=== PATIENT | female | born 1955 | race Caucasian/White ===

== ENCOUNTER 2017-10-27 15:03 | Outpatient (CLI) | payer OTHER ==
--- NOTE | 2017-10-27 15:56 | RAD ---
CHEST TWO VIEWS: 10/27/16 HISTORY: Preop. FINDINGS: The cardiac silhouette and pulmonary vasculature are unremarkable. Mediastinum is midline. There is n o confluent air space consolidation, pneumothorax, or pleural fluid. IMPRESSION: No active cardiopulmonary abnormalities are demonstrated. POS: [facility]
[2017-10-27 16:02] LABS: #Basophils 0.1 thou/uL (0.0-0.2); #Eosinphils 0.6 thou/uL (0.0-0.7); #Lymphocytes 1.8 thou/uL (1.20-3.40); #Monocytes 0.6 thou/uL (0.11-0.59); #Neutrophils 1.8 thou/uL (1.40-6.50); %Basophils 2.2 % (0.0-1.0); %Eosinophils 11.8 % (0.0-10.0); %Lymphocytes 36.9 % (21.0-51.0); %Monocytes 12.3 % (0.0-10.0); Hemoglobin 12.1 g/dL (12.0-16.0); Mean Corpuscular HGB CONC 33.8 g/dL (32.0-36.0); Mean Corpuscular Hemoglobin 33.5 pg (27.0-31.0); Mean Platelet Volume 8.3 fL (7.4-10.4); Platelet Count 208 thou/uL (130-400); RBC Distribution Width 14.1 % (11.5-14.5); Red Blood Cell (RBC) Count 3.61 mill/uL (4.20-5.40); White Blood Cell (WBC) Count 4.9 thou/uL (4.8-10.8)
[2017-10-27 16:20] LABS: Anion Gap 12 mmol/L (10-20); BUN (Urea Nitrogen) 11 mg/dL (9.8-20.1); Calc. Creatinine Clearance 0 mL/min (70-130); Calcium 8.7 mg/dL (7.8-10.44); Carbon Dioxide 26 mmol/L (22-29); Chloride 109 mmol/L (98-107); Estimated GFR-MDRD Greater than 90; Glucose 93 mg/dL (70-105); Potassium 3.9 mmol/L (3.5-5.1); Sodium 143 mmol/L (136-145)
--- NOTE | 2017-12-31 13:59 | EKG ---
Test Reason : Blood Pressure : / mmHG Vent. Rate : 085 BPM Atrial Rate : 085 BPM P-R Int : 144 ms QRS Dur : 072 ms QT Int : 350 ms P-R-T Axes : 024 056 055 degrees QTc Int : 416 ms Normal sinus rhythm Normal ECG No previous ECGs available Confirmed by SHARA DE PAZ MD ([id number]) on 12/31/2017 1:59:25 PM Referred By: KIM Confirmed By:SHARA DE PAZ MD
== END 2017-10-27 15:04 | disposition home or self-care (01) ==
LOC: LABBT 15:03
PROVIDERS: ATTEND Specialist
DX: Z01.818 Encounter for other preprocedural examination (principal); K43.9 Ventral hernia without obstruction or gangrene
CPT/HCPCS: 71046; 80048; 85025; 93005; 93010

== ENCOUNTER 2017-11-01 07:28 | Day surgery (SDC) | payer OTHER ==
[2017-10-27 15:12] VITALS: BMI 25.8
[2017-11-01] MEDS ORDERED: CEFAZOLIN/Water 2 GM/20 ML SYRINGE ONE (08:04)
[2017-11-01] MEDS ORDERED: Ketorolac Tromethamine 30 MG/ML VIAL ONE (08:05)
[2017-11-01] MEDS ORDERED: Midazolam HCl 2 mg/2 ml Vial ONE (08:40)
[2017-11-01] MEDS ORDERED: Lidocaine 2% w/Epinephrine 1:200K 20 ML VIAL ONE (09:22)
[2017-11-01] MEDS ORDERED: Bupivacaine 0.25% HCL 30 ML VIAL ONE (09:22)
[2017-11-01] MEDS ORDERED: Fentanyl 100 MCG/2 ML VIAL ONE ×3 (09:33→11:06)
[2017-11-01] MEDS ORDERED: HYDROmorphone 0.5 MG/0.5 ML SYRINGE ONE (09:33)
[2017-11-01] MEDS ORDERED: HYDROcodone/Acetaminophen 5/325 mg Tablet ONE (12:37)
[2017-11-01] MEDS ORDERED: PHENYLEPHRINE-NS 100 MCG/ML 10 ML SYRINGE ONE (16:34)
[2017-11-01] MEDS ORDERED: Lidocaine 1% PF 5 ML VIAL ONE (16:34)
[2017-11-01] MEDS ORDERED: Glycopyrrolate 0.2 MG/ML 5 ML SYRINGE ONE (16:34)
[2017-11-01] MEDS ORDERED: PROPOFOL 200 MG/20 ML VIAL ONE (16:34)
[2017-11-01] MEDS ORDERED: Ondansetron HCl/PF 4 MG/2 ML Vial ONE (16:34)
[2017-11-01] MEDS ORDERED: Dexamethasone 20 MG/5 ML VIAL ONE (16:34)
--- NOTE | 2017-11-02 07:46 | OP ---
DATE OF PROCEDURE: 11/01/2017 PREOPERATIVE DIAGNOSIS: Ventral abdominal hernia. POSTOPERATIVE DIAGNOSIS: Ventral abdominal hernia. OPERATION PERFORMED: Open ventral hernia repair with mesh using a 4.3 cm Proceed ventral patch. SURGEON: Dr. Hipolito Cheema ANESTHESIA: General endotracheal. INDICATIONS: The patient is a 62-year-old white female. She presents with a visible and palpable ma ss in her epigastrium consistent with a hernia. She is taken to the operating room at this time for repair. DESCRIPTION OF OPERATION: Informed consent was obtained. The patient was taken to the operating estefani m where general endotracheal anesthesia was obtained with the patient in supine position. Abdomen wa s prepped with ChloraPrep and draped in sterile fashion. Local anesthetic was infiltrated using a mi xture to result in 0.25% Marcaine with epinephrine. A vertical 4 cm incision was created over the pa lpable mass in the midline. Dissection was carried through skin and subcutaneous tissue. Hernia con tents were quickly encountered and were dissected circumferentially. All herniated tissue was fatty tissue and this was therefore amputated at its base using electrocautery, maintaining hemostasis. Th e defect was identified and found to be slightly less than 1 cm. I dissected the fascia anteriorly. I then performed blunt dissection of the posterior fascia. A 4.3 cm Proceed ventral patch was obtai hammad and placed in the preperitoneal space. The two tails of the mesh were secured to the anterior fa scia superiorly and inferiorly with single interrupted sutures of 0 Prolene. Lateral aspects of the defect were closed using 0 Prolene as well, incorporating bites of the anterior leaflet of the mesh p atch. The wound was irrigated and hemostasis was ensured. It was then closed in layers using interr upted sutures of 3-0 Vicryl to approximate the deep layers and close the space. Skin edges appr oximated with 4-0 Monocryl subcuticular suture. Additional local anesthetic was infiltrated. Dermab ond was placed externally. There were no complications. The patient tolerated the procedure well an d was taken to recovery in stable condition.
== END 2017-11-01 14:10 | disposition home or self-care (01) ==
LOC: SDC 07:28
PROVIDERS: ATTEND Specialist
PROC: 0WUF0JZ Supplement Abdominal Wall with Synthetic Substitute, Open Approach (ICD-10-PCS; principal; 2017-11-01)
DX: K43.9 Ventral hernia without obstruction or gangrene (principal); F90.0 Attention-deficit hyperactivity disorder, predominantly inattentive type; F32.9 Major depressive disorder, single episode, unspecified; M54.2 Cervicalgia; G89.29 Other chronic pain; Z79.891 Long term (current) use of opiate analgesic; Z79.899 Other long term (current) drug therapy; Z98.1 Arthrodesis status; Z98.82 Breast implant status; Z90.49 Acquired absence of other specified parts of digestive tract; Z98.891 History of uterine scar from previous surgery; Z98.890 Other specified postprocedural states
CPT/HCPCS: 96374; C1781; J0131; J1100; J1170; J1885; J2001; J2250; J2405; J2704; J3010; S0020

== ENCOUNTER 2017-11-29 15:16 | Observation (INO) | payer OTHER ==
[~2017-11-29 15:16] MED LIST: Dexamethasone 20 MG/5 ML VIAL ONE; Lidocaine 1% PF 5 ML VIAL ONE; Ondansetron HCl/PF 4 MG/2 ML Vial ONE; PHENYLEPHRINE-NS 100 MCG/ML 10 ML SYRINGE ONE; PROPOFOL 200 MG/20 ML VIAL ONE; diphenhydrAMINE 50 MG/ML VIAL ONE
[2017-11-29 16:15] LABS: #Lymphocytes 1.3 thou/uL (1.20-3.40); #Monocytes 0.6 thou/uL (0.11-0.59); #Neutrophils 5.5 thou/uL (1.40-6.50); %Basophils 0.6 % (0.0-1.0); %Eosinophils 0.3 % (0.0-10.0); %Lymphocytes 17.6 % (21.0-51.0); %Monocytes 8.2 % (0.0-10.0); %Neutrophils 73.4 % (42.0-75.0); Hemoglobin 13.5 g/dL (12.0-16.0); Mean Corpuscular HGB CONC 33.3 g/dL (32.0-36.0); Mean Corpuscular Volume 99.2 fl (81.0-99.0); Mean Platelet Volume 7.9 fL (7.4-10.4); Platelet Count 230 thou/uL (130-400); RBC Distribution Width 12.8 % (11.5-14.5); Red Blood Cell (RBC) Count 4.08 mill/uL (4.20-5.40); White Blood Cell (WBC) Count 7.4 thou/uL (4.8-10.8)
[2017-11-29] MEDS ORDERED: Morphine 4 MG/ML VIAL ONE ×2 (16:29→19:45)
[2017-11-29] MEDS ORDERED: Ondansetron HCl/PF 4 MG/2 ML Vial ONE (16:29)
[2017-11-29 16:34] LABS: ALT (SGPT) 20 U/L (8-55); AST (SGOT) 36 U/L (5-34); Albumin 4.6 g/dL (3.5-5.0); Alkaline Phosphatase 93 U/L (40-150); Anion Gap 16 mmol/L (10-20); BUN (Urea Nitrogen) 14 mg/dL (9.8-20.1); Bilirubin, Total 1.1 mg/dL (0.2-1.2); Calc. Creatinine Clearance 0 mL/min (70-130); Calcium 9.9 mg/dL (7.8-10.44); Carbon Dioxide 24 mmol/L (22-29); Chloride 104 mmol/L (98-107); Estimated GFR-MDRD 84; Globulin 3.1 g/dL (2.4-3.5); Glucose 108 mg/dL (70-105); Protein, Total 7.7 g/dL (6.0-8.3); Sodium 140 mmol/L (136-145)
[2017-11-29] MEDS ORDERED: CEFAZOLIN 1 GM, Syringe 2.5 ML in Sterile Water 7.5 ML SLOW IVP SCH (16:45)
--- NOTE | 2017-11-29 16:59 | RAD ---
PORTABLE CHEST ONE VIEW: 11/29/17 at 4:31 p.m. HISTORY: Preoperative evaluation, fracture of the hand. FINDINGS: The heart size is normal. The aorta is tortuous. The lungs are well expanded without focal areas of c onsolidation, pneumothoraces or pleural effusions. IMPRESSION: No radiographic evidence of acute cardiopulmonary process. POS: [facility]
--- NOTE | 2017-11-29 17:03 | RAD ---
LEFT WRIST THREE VIEW 11/29/17 HISTORY: Open fracture left hand after a fall on Tuesday. COMPARISON: None. HISTORY: The left wrist is intact. There is a fracture of the fifth metacarpal neck with mild foreshortening a nd palmar angulation. IMPRESSION: 1. Intact wrist. 2. Fracture of the fifth metacarpal neck with mild foreshortening and moderate volar angulation. POS: [facility]
--- NOTE | 2017-11-29 17:05 | RAD ---
LEFT HAND THREE VIEW 11/29/17 HISTORY: Pain. COMPARISON: None. FINDINGS: There is a fracture of the fifth metacarpal neck with mild foreshortening and moderate volar angulati on. No other acute fracture or malalignment. Soft tissues are unremarkable. IMPRESSION: Fracture of the fifth metacarpal neck with moderate volar angulation and foreshortening. POS: [facility]
[2017-11-29] MEDS ORDERED: Ketorolac Tromethamine 30 MG/ML VIAL ONE (19:19)
[2017-11-29] MEDS ORDERED: Sodium Chloride 0.9% 30 ML ONE (19:28)
[2017-11-29] MEDS ORDERED: Bupivacaine PF 0.5% 30 ML VIAL ONE (19:54)
[2017-11-29] MEDS ORDERED: Bacitracin Zinc Ointment 30 gm TUBE ONE (19:54)
[2017-11-29] MEDS ORDERED: Fentanyl 250 MCG/5 ML VIAL ONE ×2 (20:13→22:39)
[2017-11-29] MEDS ORDERED: Midazolam HCl 2 mg/2 ml Vial ONE (20:13)
--- NOTE | 2017-11-29 22:14 | RAD ---
RADIOGRAPH LEFT HAND 3 VIEWS: Date: 11/29/17 Time: 9:46 p.m. HISTORY: 62-year-old female with acute boxer's fracture of fifth metacarpal. COMPARISON: 11/29/17 at 4:29 p.m. FINDINGS: A total of five small field of view, fluoroscopic spot images obtained with C-arm in the OR. The frac ture at the neck of the fifth metacarpal has been reduced, and fixated with three screws. IMPRESSION: Open reduction and screw fixation of acute, traumatic, displaced boxer's fracture of fifth metacarpal distal metaphysis. POS: [facility]
[2017-11-29] MEDS ORDERED: Promethazine HCl 25 MG/ML VIAL IM PRN ×2 (22:38→22:53)
[2017-11-29] MEDS ORDERED: Ondansetron HCl/PF 4 MG/2 ML Vial IVP PRN (22:38)
[2017-11-29] MEDS ORDERED: Promethazine HCl 25 MG/ML VIAL SLOW IVP PRN (22:38)
[2017-11-29] MEDS ORDERED: Ondansetron HCl/PF 4 MG/2 ML Vial SLOW IVP PRN (22:53)
[2017-11-29] MEDS ORDERED: Morphine 4 MG/ML VIAL SLOW IVP PRN (22:53)
[2017-11-29] MEDS ORDERED: traMADol HCl 50 MG TAB PO PRN (22:53)
[2017-11-29] MEDS ORDERED: Acetaminophen 325 MG TAB PO PRN (22:53)
[2017-11-29] MEDS ORDERED: Milk Of Magnesia 30 ML UDCUP PO PRN (22:53)
[2017-11-29] MEDS ORDERED: TETANUS AND DIPHTHERIA TOX/PF 0.5 ML DISP.SYRIN IM SCH (23:00)
[2017-11-29] MEDS ORDERED: Communication Order-Pharmacy FS PRN (23:00)
[2017-11-29] MEDS ORDERED: Adacel (T-DAP) 0.5 ML VIAL IM ONE (23:15)
[2017-11-29] MEDS ORDERED: HYDROmorphone 0.5 MG/0.5 ML SYRINGE ONE ×2 (23:19→23:29)
[2017-11-30] MEDS: Ketorolac Tromethamine 30 MG/ML VIAL IVP SCH ×3 (01:26→11:46)
[2017-11-30] MEDS: HYDROcodone/Acetaminophen 10/325 mg Tablet PO PRN ×3 (01:27→13:47)
[2017-11-30] MEDS ORDERED: Morphine 5 MG/ML SYRINGE SLOW IVP PRN (03:03)
[2017-11-30] MEDS: Clindamycin/D5W 600 MG in Premix Bag 1 BAG IVPB SCH ×2 (06:09→13:47)
[2017-11-30] MEDS: Sodium Chloride 0.9% 100 ML IV SCH ×6 (06:11→13:28)
--- NOTE | 2017-11-30 10:33 | OP ---
PREOPERATIVE DIAGNOSES: 1. Left small finger metacarpal fracture. 2. Left small finger open fracture of metacarpal. 3. Left index finger extensor digitorum small finger partial laceration. POSTOPERATIVE DIAGNOSES: 1. Left small finger metacarpal fracture. 2. Left small finger open fracture of metacarpal. 3. Left index finger extensor digitorum small finger partial laceration. 4. Fracture hematoma, but no gross infection or particle seen, 5-mm open wound. PROCEDURES PERFORMED: 1. Debridement of wound of 5 mm, dorsal small finger metacarpal ray. 2. Debridement of material associated open fracture, small finger metacarpal neck fracture with shaf t extension of 2 cm oblique fracture. 3. Open reduction and internal fixation of fracture of small finger metacarpal shaft using 3 lag scr ews from the 1.5 Synthes modular handset, variable angle. 4. Repair of extensor digitorum communis to the small finger laceration with intact extensor digitor um minimi, appeared to involve a partial laceration almost 80% secondary to the fracture fragment. COMPLICATIONS: None. TOURNIQUET TIME: 52 minutes. BLOOD LOSS: 10 mL. INJECTABLE: Total 20 mL of 0.5% Marcaine with epinephrine, 10 before incision and 10 after closure. INDICATIONS: The patient is a very pleasant lady who comes in today with open fracture treated at [facility] emergency room with simple irrigation and antibiotics. When she went back to have the malloy rgery performed on the day this surgery, she was told her insurance will only cover here at [facility], so she reported to the office via phone call and was instructed to come to the emergency room wher e we could evaluate her for more urgent surgery based on the need and the time available. DESCRIPTION OF PROCEDURE: After successful general endotracheal anesthesia, limb was prepped and chico ped. She had the incision outlined in zigzag fashion. C-arm was brought into the field and confirme d, and then showed a small finger metacarpal fracture with the neck displaced and the shaft comminute d x2. The patient did however have marked malrotation and once we the fracture fragments; debrided with a combination of curette, [place] blade, tenotomy scissors; we could easily see the frac ture plane for reduction and also using a curette and using excisional techniques to debride this wo und. There was no gross infection and the wound edges are in without necrosis or abscess forma tion even though it was 5 days since injury. Once we finished removing all debris, we irrigated it w ith 3000 mL of normal saline and Pulsavac pressure with antibiotics inside, bacitracin 50,000 units p er liter. Then, we performed an open reduction using mild amount of traction, rotating the fracture fragment until the point distally matched up the male end, with the female end of the fracture distal ly. We then slightly oblique the screws and then placed them in lag technique from distal to proxima l, and had excellent apposition except for an area where there was comminution and a sleeve of the la teral wall was . This was placed back against its old defect, where it was not 100% fit, bu t it should help with fracture healing. Tourniquet was deflated after these 3 screws were placed in sequential order from distal to proximal of the metacarpal head and neck. We then noticed after obtaining hemostasis that there was some ashley osteal stripping as well as no visible defects. The Prolene was used in a running [id number] to repair extensor mechanism over to repair periost eum at this point in fracture line using interrupted 4-0 Monocryl. The same 4-0 Monocryl was used to close the epidermal layer. The dermal layer and epidermis were closed with 5-0 nylon interrupted si mple pattern. Bulky dressing was applied. The patient left the operating room without evidence of a nesthetic or operative complications in a splint, small short-arm type.
[2017-11-30 11:44] VITALS: BP 139/90; TEMP 97.7
--- NOTE | 2017-12-02 11:57 | EKG ---
Test Reason : Blood Pressure : / mmHG Vent. Rate : 086 BPM Atrial Rate : 086 BPM P-R Int : 104 ms QRS Dur : 074 ms QT Int : 356 ms P-R-T Axes : 010 030 037 degrees QTc Int : 426 ms Sinus rhythm with short MS Otherwise normal ECG Confirmed by JEWELS Wagner, ASHLEE ([id number]), supervising editor trailer LIDYA LLANOS ([id number]) on 12/02/2017 11:56:15 AM Referred By: Confirmed By:ASHLEE DONIS M.D.
== END 2017-11-30 16:35 | disposition home or self-care (01) ==
LOC: ERS 15:16 → SDC/OP 18:59 → 3SE 23:08
PROVIDERS: ADMIT Orthopaedic Surgery Hand Surgery; ATTEND Orthopaedic Surgery Hand Surgery
PROC: 0PSQ04Z Reposition Left Metacarpal with Internal Fixation Device, Open Approach (ICD-10-PCS; principal; 2017-11-29)
DX: S62.337B Displaced fracture of neck of fifth metacarpal bone, left hand, initial encounter for open fracture (principal); S62.327B Displaced fracture of shaft of fifth metacarpal bone, left hand, initial encounter for open fracture; S66.327A Laceration of extensor muscle, fascia and tendon of left little finger at wrist and hand level, initial encounter; F32.9 Major depressive disorder, single episode, unspecified; Z79.891 Long term (current) use of opiate analgesic; Z79.899 Other long term (current) drug therapy; Z98.82 Breast implant status; Z98.1 Arthrodesis status; Z98.891 History of uterine scar from previous surgery; Z90.49 Acquired absence of other specified parts of digestive tract; Z98.890 Other specified postprocedural states
CPT/HCPCS: 36415; 71045; 76001; 80053; 85025; 86850; 86900; 86901; 93005; 96361; 96366; 96367; 96374; 96375; 96376; J2270; A4216; C1713; G0378; J0690; J1100; J1170; J1200; J1885; J2001; J2250; J2405; J2704; J3010; J3490; S0020

== ENCOUNTER 2018-01-03 16:00 | Outpatient (CLI) | payer OTHER ==
--- NOTE | 2018-01-04 10:42 | MRI ---
MRI RIGHT WRIST WITHOUT CONTRAST: Date: 01/03/18 HISTORY: Injury. Pain. COMPARISON: None FINDINGS: Bones: There is a nondisplaced fracture of trapezium extending from the scaphotrapezium through the carpomet acarpal joint. There is abnormal edema along the lateral margin of the scaphoid waist in a similar bu t linear fashion which may represent an impacted micro trabecular fracture. This does not exit the me dial cortex. There is widening of the scapholunate interval with erosions and abnormal thickening of the scapholunate ligament in all three portions consistent with a healing partial tear. There is narr owing of the joint spaces within the capitate and the triquetrum with erosions. The radial collateral ligament of the thumb carpometacarpal joint is intact. The anterior oblique lig ament is partially torn. There is a partial tear of the intermetacarpal ligament. Dorsal radial ligam ent, dorsal central ligament, and posterior oblique ligaments appear to be intact. Tendons: There is extensive increased fluid signal within the flexor carpi radialis distal tendinous insertion indicating a partial tear. The extensor carpi ulnaris has longitudinal split tear at the level of th e ulnar groove. There is a small cyst of the anterior margin of the distal ulnar near the ulnar groove near the dista l radial and ulnar ligament insertion. There is narrowing of the distal radial and ulnar joint. A small area of edema along the cortex of the second extensor compartment suggests lateral to distal tubercle distal radius. There is narrowing of the radiocarpal joints. IMPRESSION: 1. Nondisplaced intra-articular fracture trapezium extending from the scaphotrapezial to the carpome tacarpal joint. 2. Grade II partial tear anterior oblique ligament of the thumb carpometacarpal ligament, as well as Grade I injury of the intermetacarpal ligament. 3. Partial tear of the flexor carpi radialis distal tendon with tenosynovial fluid tracking along it s distal 3.0 cm tendon sheath. 4. Longitudinal split tear of the extensor carpal ulnaris at the ulnar groove without subluxation. 5. Mild edema within the opponens pollicis muscle may be from direct contusion. 6. Edema along the lateral margin of the scaphoid waist without extension into the medial cortex may represent a healing trabecular micro impaction fracture. This edema is somewhat linear in nature. POS: [facility]
== END 2018-01-03 16:01 | disposition home or self-care (01) ==
LOC: SCSMRI 16:00
PROVIDERS: ATTEND Orthopaedic Surgery Hand Surgery
DX: S62.174A Nondisplaced fracture of trapezium [larger multangular], right wrist, initial encounter for closed fracture (principal); S63.621A Sprain of interphalangeal joint of right thumb, initial encounter; S56.211A Strain of other flexor muscle, fascia and tendon at forearm level, right arm, initial encounter; S66.319A Strain of extensor muscle, fascia and tendon of unspecified finger at wrist and hand level, initial encounter

== ENCOUNTER 2018-06-06 07:06 | Day surgery (SDC) | payer OTHER ==
[2018-06-06 07:26] VITALS: BMI 24.2
--- NOTE | 2018-06-06 10:01 | RAD ---
CERVICAL MYELOGRAM: History: Neck and right arm pain, hand numbness. History of previous surgery. Technique: After informed consent was obtained, the patient was prepped and draped in the normal sterile fashion . Using a 22 gauge spinal needle, an L3-4 puncture was performed without difficulty and approximately 12 cc of non-ionic contrast were injected intrathecally with good opacification of the thecal sac. W ith the patient prone on the table, she was placed in a head down position and contrast was collected in the cervical spine. Post-operative changes of the spine are noted. There has been anterior cervic al fusion with placement of a plate and screws at the C4-5 level with laminectomy changes. There is a lso cerclage type wire at the C5-6 level. Some mild disc narrowing at C6-7 and C7-T1. There is mona listhesis of C3 on C4. IMPRESSION: Successful cervical myelogram. Please see CT for report. POS: [facility]
--- NOTE | 2018-06-06 11:41 | CT ---
POST MYELOGRAM CT OF CERVICAL SPINE PERFORMED WITH CONTRAST: History: Neck pain. Right arm pain. History of previous surgery. FINDINGS: The vertebral bodies are normal in height. Anterior cervical fusion is noted at the C4-5 level. There is an anterolisthesis of C3 on C4, approximately 2-3 mm. Bony fusion at the C5-6 level. Disc narrowi ng at C6-7 and C7-T1. Cerclage wire at the spinus process level of C5 and C6 is noted. Cord is normal in caliber. C2-3: No canal or foraminal stenosis. C3-4: Facet hypertrophic changes which are asymmetric involving the right side but without significan t canal or foraminal stenosis. C4-5: Unremarkable. C5-6: No significant canal or foraminal stenosis. C6-7: There is some disc bulge present at this level with small right sided disc osteophyte complex. This does impress on the right side of the thecal sac asymmetrically as compared to the left and with some borderline right foraminal narrowing at this level. C7-T1: No significant canal or foraminal stenosis. IMPRESSION: 1. Post-operative changes of the spine. 2. At the C6-7 level there is disc narrowing and posterior osteophytic change and disc bulging, sligh tly asymmetric right sided disc osteophyte complex compressing slightly on the right side of the cord and thecal sac at this level with some borderline right foraminal narrowing. POS: [facility]
== END 2018-06-06 10:30 | disposition home or self-care (01) ==
LOC: RAD 07:06
PROVIDERS: ATTEND Neurological Surgery
DX: M48.02 Spinal stenosis, cervical region (principal); G56.01 Carpal tunnel syndrome, right upper limb
CPT/HCPCS: 62302; 72126

== ENCOUNTER 2018-07-20 00:16 | Emergency (ER) | payer OTHER ==
[2018-07-20 00:52] LABS: #Basophils 0.1 thou/uL (0.0-0.2); #Eosinphils 0.1 thou/uL (0.0-0.7); #Lymphocytes 1.8 thou/uL (1.20-3.40); #Monocytes 0.8 thou/uL (0.11-0.59); #Neutrophils 6.8 thou/uL (1.40-6.50); %Eosinophils 1.5 % (0.0-10.0); %Lymphocytes 18.8 % (21.0-51.0); %Monocytes 8.5 % (0.0-10.0); %Neutrophils 70.3 % (42.0-75.0); Hemoglobin 15.8 g/dL (12.0-16.0); Mean Corpuscular HGB CONC 33.1 g/dL (32.0-36.0); Mean Corpuscular Hemoglobin 33.9 pg (27.0-31.0); Mean Platelet Volume 8.1 fL (7.4-10.4); Platelet Count 253 thou/uL (130-400); RBC Distribution Width 12.4 % (11.5-14.5); Red Blood Cell (RBC) Count 4.66 mill/uL (4.20-5.40); White Blood Cell (WBC) Count 9.7 thou/uL (4.8-10.8)
[2018-07-20 00:58] LABS: INR-International Normal Ratio 0.9; PTT 24.6 SEC (22.9-36.1); Prothrombin Time 12.5 SEC (12.0-14.7)
[2018-07-20 01:12] LABS: ALT (SGPT) 62 U/L (8-55); AST (SGOT) 109 U/L (5-34); Albumin 4.7 g/dL (3.4-4.8); Alkaline Phosphatase 98 U/L (40-150); Anion Gap 16 mmol/L (10-20); BUN (Urea Nitrogen) 8 mg/dL (9.8-20.1); Bilirubin, Total 0.8 mg/dL (0.2-1.2); CK (CPK) 97 U/L (29-168); Calc. Creatinine Clearance 0 mL/min (70-130); Calcium 9.7 mg/dL (7.8-10.44); Carbon Dioxide 18 mmol/L (23-31); Chloride 108 mmol/L (98-107); Estimated GFR-MDRD 76; Globulin 3.3 g/dL (2.4-3.5); Glucose 119 mg/dL (80-115); Lipase 90 U/L (8-78); Potassium 3.8 mmol/L (3.5-5.1); Sodium 138 mmol/L (136-145)
[2018-07-20 02:25] LABS: Bilirubin Negative (Negative); Blood, Urine Negative (Negative); Clarity CLEAR (Clear); Glucose, Urine (Dipstick) Negative (Negative); Leukocyte Trace (Negative); Nitrite Negative (Negative); Protein, Urine (Dipstick) Negative (Neg-Trace); Specific Gravity, Urine 1.018 (1.002-1.036); Urobilinogen 0.2 mg/dL (0.2-1.0)
[2018-07-20 02:28] LABS: Bacteria/HPF None Seen HPF (None Seen); Hyaline Casts/LPF 7-10 HYALINE CAST LPF (0-3 Hyaline); RBC/HPF 0-3 HPF (0-3); Squamous Epithelial 0-3 HPF (0-3); WBC/HPF 0-3 HPF (0-3)
== END 2018-07-20 02:56 | disposition home or self-care (01) ==
LOC: ERS 00:16
DX: E86.0 Dehydration (principal); R11.2 Nausea with vomiting, unspecified; R19.7 Diarrhea, unspecified; F32.9 Major depressive disorder, single episode, unspecified; Z79.899 Other long term (current) drug therapy
CPT/HCPCS: 36415; 80053; 81003; 81015; 82550; 83690; 85025; 85610; 85730; 86850; 86900; 86901; 96360

== ENCOUNTER 2018-08-16 05:39 | Day surgery (SDC) | payer OTHER ==
[2018-08-11 14:45] VITALS: BMI 24.2
--- NOTE | 2018-08-15 16:32 | HP ---
HISTORY OF PRESENT ILLNESS: Ms. Frazier is a pleasant 63-year-old woman, presenting for evaluation of significant posterior neck pain with only radiation into the upper intrascapular areas. She denies any radiation to the bilateral upper extremities. She does suffer from numbness in the right hand, which could be potentially consistent with carpal tunnel syndrome. She does report that she had history of extensive cervical spine surgery including anterior and posterior fusion. She has a new CT myelogram displaying this hardware that looks to be intact. However, she has developed anterolisthesis at the superior level after her fusion which is at C3-C4. This looks to be likely a chief component in the pain that she continues to suffer from. PAST MEDICAL HISTORY: Significant for anxiety, depression, ADD, gastroesophageal reflux disease. CURRENT MEDICATIONS: 1. Prozac. 2. Protonix. 3. [place]. ALLERGIES: NO KNOWN DRUG ALLERGIES. PAST SURGICAL HISTORY: Cervical fusion x3, carpal tunnel release. PHYSICAL EXAMINATION: GENERAL: The patient is alert and oriented x3. MUSCULOSKELETAL: She has notable paresthesia to the right hand and the distribution of the first three digits. She also has very limited cervical range of motion secondary to pain. ASSESSMENT: Cervical radiculopathy and neck pain. PLAN: Dr. Alexander met with the patient, reviewed imaging, revision C3-C4 ACDF with removal of hardware via assistance of ENT Surgery. We explained to the patient the risks, benefits, and alternatives to the procedure. The patient expressed understanding and would like to move forward with surgery as discussed. I do believe that the patient is mentally competent and capable of making medical decisions for herself. We will move forward with surgery as planned. Job ID: [id number]
[2018-08-16] MEDS ORDERED: Thrombin 5000 UNITS/5 ML VIAL ONE (06:18)
[2018-08-16] MEDS ORDERED: Midazolam HCl 2 mg/2 ml Vial ONE ×2 (06:20→06:46)
[2018-08-16] MEDS ORDERED: Fentanyl 100 MCG/2 ML VIAL ONE ×5 (06:20→09:08)
[2018-08-16] MEDS ORDERED: CEFAZOLIN 2 GM/50 ML BAG ONE ×2 (06:31→12:59)
[2018-08-16] MEDS ORDERED: Lidocaine 1% w/Epinephrine 1:100K 30 ML VIAL ONE (06:35)
[2018-08-16] MEDS ORDERED: SUGAMMADEX SODIUM 500 MG/5 ML VIAL ONE (07:20)
[2018-08-16] MEDS ORDERED: Glycopyrrolate 0.2 MG/ML 5 ML SYRINGE ONE ×2 (07:43→16:37)
[2018-08-16] MEDS ORDERED: HYDROmorphone 2 MG/ML VIAL ONE (09:25)
[2018-08-16] MEDS ORDERED: HYDROcodone/Acetaminophen 5/325 mg Tablet ONE (11:35)
--- NOTE | 2018-08-16 15:38 | OP ---
DATE OF PROCEDURE: 08/16/2018 GEOGRAPHIC INFORMATION SYSTEM ANALYST: Alfie Cantrell PA-C. INDICATION: Pain. DIAGNOSES: Cervical spondylolisthesis with neck pain and cervical radiculopathy. PROCEDURES PERFORMED: Reoperation, removal of anterior instrumentation, anterior cervical discectomy and fusion C3-C4. ANESTHESIA: General. DESCRIPTION OF PROCEDURE: The patient was brought into the operating room and placed under general anesthesia. She was placed on the table in a supine position. A transverse incision was planned at the location of a prior incision. Dr. Rick Babcock was responsible for the cervical exposure down to the prevertebral space. That will be dictated in a sperate note. After identifying the plate already placed from the prior procedure at C4-C5, we removed the plate as well as all screws. We then redirected our attention to the level above at C3-C4 where an annulotomy was performed. All disk materials as well as anterior and posterior osteophytes were then removed. After completely decompressing this area, a 6 mm lordotic PEEK cage packed with allograft and autograft material was placed within the interbody space. The anterior cervical plate was then fashioned to the front of the spine and secured with a total of 4 fixed screws. Midline and lateral structures were inspected and found to be free from significant trauma. The wound was irrigated. Hemostasis was maintained throughout. The wound was then closed in anatomic layers and a pressure dressing was applied. There were no known procedural complications. Job ID: [id number] [facility]
[2018-08-16] MEDS ORDERED: PROPOFOL 200 MG/20 ML VIAL ONE (16:37)
[2018-08-16] MEDS ORDERED: Ondansetron PF 4 MG/2 ML Vial ONE (16:37)
[2018-08-16] MEDS ORDERED: Ketorolac Tromethamine 30 MG/ML VIAL ONE (16:37)
[2018-08-16] MEDS ORDERED: ePHEDrine/0.9% NaCl/PF SYRINGE 50 mg/10 ml ONE (16:37)
[2018-08-16] MEDS ORDERED: PHENYLEPHRINE-NS 100 MCG/ML 10 ML SYRINGE ONE (16:37)
[2018-08-16] MEDS ORDERED: Lidocaine 1% PF 5 ML VIAL ONE (16:37)
[2018-08-16] MEDS ORDERED: Dexamethasone 20 MG/5 ML VIAL ONE (16:37)
== END 2018-08-16 16:00 | disposition home or self-care (01) ==
LOC: SDC 05:39
PROVIDERS: ATTEND Neurological Surgery
PROC: 0RT30ZZ Resection of Cervical Vertebral Disc, Open Approach (ICD-10-PCS; principal; 2018-08-16)
PROC: 0RG10A0 Fusion of Cervical Vertebral Joint with Interbody Fusion Device, Anterior Approach, Anterior Column, Open Approach (ICD-10-PCS; principal; 2018-08-16)
DX: M43.12 Spondylolisthesis, cervical region (principal); M54.12 Radiculopathy, cervical region; F41.9 Anxiety disorder, unspecified; F32.9 Major depressive disorder, single episode, unspecified; F98.8 Other specified behavioral and emotional disorders with onset usually occurring in childhood and adolescence; K21.9 Gastro-esophageal reflux disease without esophagitis; Z79.899 Other long term (current) drug therapy; Z98.1 Arthrodesis status
CPT/HCPCS: 76001; 96374; C1713; C1776; J1100; J1170; J1885; J2001; J2250; J2405; J2704; J3010; J7620

== ENCOUNTER 2018-10-26 09:28 | Outpatient (CLI) | payer OTHER ==
--- NOTE | 2018-10-26 11:28 | CT ---
NONCONTRAST CT CERVICAL SPINE: Date: 10-26-18 History: Cervical radiculopathy and neck pain. History of neck surgery 6 weeks ago. Comparison: 06-06-18 Technique: Multiple contiguous axial CT images were obtained through the cervical spine from the skul l base to the T1-2 level. Sagittal and coronal reformatted images are provided. FINDINGS: The anterior plate and screw previously seen in the C4 and C5 vertebral body have been removed, and t here is now an anterior plate and screws transfixing the C3-4 level. There is osseous incorporation o f the C4-5 and C5-6 vertebral bodies. Intradiscal prosthesis is present at the C3-4 level with the mo st posterior marker at the most posterior aspect of the intervertebral disc space. There is exaggerat ed kyphosis of the upper cervical spine. Cerclage wires are seen involving the posterior elements at the C5-6 level. Laminectomy defects are s een at the C3-4 and C4-5 levels. The slight anterolisthesis of C3 on C4 is again seen. There are facet degenerative changes present at this level. No fracture or level of subluxation is seen involving the cervical spine. Degenerative c hanges are seen involving the C6-7, C7-T1, and T1-2 level with loss of intervertebral disc height and endplate degenerative change as well as disc osteophyte formation present at these levels. There is uncinate process hypertrophy at the C2-3 level without significant neural foraminal narrowin g. Prominent osteophyte formation on the right at the C3-4 level in addition to posterior osteophyte formation results in mild to moderate right sided neural foraminal narrowing. There is mild narrowing of the central spinal canal at the C6-7 level related to the disc osteophyte complex which narrowings the ventral subarachnoid space and does result in mass effect in the anterio r aspect of the spinal cord. There is mild bilateral neural foraminal narrowing greater on the left. Prevertebral soft tissues are within normal limits. There is mild symmetric biapical pleural and pare nchymal scarring identified. IMPRESSION: 1. Interval post-surgical changes related to anterior cervical fusion at the C3-4 level. The most pos terior marker for the intervertebral disc prosthesis is seen at the most posterior aspect of the inte rvertebral disc space and is slightly unroofed by the posterior aspect of the C3 vertebral body due t o the anterolisthesis. 2. Removal of the anterior fusion hardware at the C4-5 level. 3. Exaggerated kyphosis of the cervical spine. 4. Degenerative changes as described above. POS: [facility]
== END 2018-10-26 09:29 | disposition home or self-care (01) ==
LOC: TBSIIMAG 09:28
PROVIDERS: ATTEND Neurological Surgery
DX: M47.22 Other spondylosis with radiculopathy, cervical region (principal); M54.2 Cervicalgia; M40.202 Unspecified kyphosis, cervical region; Z98.1 Arthrodesis status
CPT/HCPCS: 72125

== ENCOUNTER 2019-05-15 06:36 | Emergency (ER) | payer OTHER | END 2019-05-15 07:08 | disposition left against medical advice (07) | LOC: ERS 06:36 | DX: Z53.21 Procedure and treatment not carried out due to patient leaving prior to being seen by health care provider (principal) ==

== ENCOUNTER 2019-08-22 14:07 | Outpatient (CLI) | payer OTHER ==
--- NOTE | 2019-08-22 15:49 | MMO ---
Bilateral MAMMO Bilat Diag DDI+CRISTOFER. CLINICAL HISTORY: Patient is 64 years old and is seen for diagnostic exam and pain in the left breast. The patient has the following family history of breast cancer: maternal aunt, GREAT. The patient has no personal history of cancer. The patient has a history of bilateral Implants and bilateral mastopexy. VIEWS: The views performed were: bilateral craniocaudal; bilateral craniocaudal with tomosynthesis; bilateral mediolateral oblique; bilateral mediolateral oblique with tomosynthesis; bilateral mediolateral; bilateral mediolateral with tomosynthesis; and bilateral Implant displaced with tomosynthesis. FILMS COMPARED: The present examination has been compared to a prior imaging study performed at [facility] on 08/22/2019. This study has been interpreted with the assistance of computer-aided detection. MAMMOGRAM FINDINGS: The breasts are heterogeneously dense, which could obscure a lesion on mammography. There are bilateral pre-pectoral saline implants. Finding 1: There is a ruptured implant seen in the right breast. Finding 2: There is no radiographic abnormality in the region of the focal pain in the sub-areolar region of the left breast. No sonographic abnormality is seen in the region of pain. There are no suspicious masses, suspicious calcifications, or new areas of architectural distortion. IMPRESSION: FINDING 1: IMPLANT FINDING IN THE RIGHT BREAST IS BENIGN. FINDING 2: AREA IN THE LEFT BREAST IS BENIGN. NO MAMMOGRAPHIC OR SONOGRAPHIC ABNORMALITIES ARE PRESENT TO CORRELATE WITH THE SITE OF LEFT NIPPLE PAIN. THE PATIENT WILL BE REFERRED BACK TO HER CLINICIAN FOR FURTHER CARE. BIOPSY SHOULD NOT BE PRECLUDED BY THE ABSCENCE OF IMAGING FINDINGS, IN THE SETTING OF CLINICAL CONCERN FOR MALIGNANCY. THE FINDINGS AND RECOMMENDATIONS WERE DISCUSSED WITH THE PATIENT PRIOR TO HER LEAVING THE CENTER. A ROUTINE FOLLOW-UP MAMMOGRAM IN 1 YEAR IS RECOMMENDED. THE RESULTS OF THIS EXAM WERE SENT TO THE PATIENT. ACR BI-RADS Category 2 - Benign finding MAMMOGRAPHY NOTE: 1. A negative mammogram report should not delay a biopsy if a dominant of clinically suspicious mass is present. 2. Approximately 10% to 15% of breast cancers are not detected by mammography. 3. Adenosis and dense breasts may obscure an underlying neoplasm. Reported by: LEONEL BYRD MD Electonically Signed: [id number]
--- NOTE | 2019-08-22 15:50 | ULT ---
LEFT BREAST DIAGNOSTIC ULTRASOUND: 08/22/19 INDICATION: Left nipple pain. COMPARISON: Diagnostic mammogram dated 08/22/19. FINDINGS: No suspicious sonographic abnormality seen within the left breast retroareolar region. IMPRESSION: No suspicious sonographic abnormality seen within the left breast retroareolar region. Please see the separately dictated bilateral diagnostic mammogram for further details. Patient was counselled on fi ndings prior to leaving the breast center. POS: [facility]
== END 2019-08-22 14:08 | disposition home or self-care (01) ==
LOC: BICMAMMO 14:07
PROVIDERS: ATTEND Family Medicine
DX: N64.4 Mastodynia (principal)
CPT/HCPCS: 77066; G0279